=== PATIENT | male | born 1965 | race Two or more races ===

== ENCOUNTER → 2025-03-24 | Outpatient (CLI) | payer MEDICAID, SELFPAY ==
--- NOTE | 2025-03-24 15:30 | XR_ITS ---
Examination: Retroperitoneal ultrasound, complete Technique: Multiple high resolution grayscale images of the retroperitoneum obtained, including kidneys and bladder. Exam date and time:March 24 2025, 1509 hours INDICATIONS: CT stone study July 22, 2023 multiple right renal calculi, diagnosis chronic kidney disease stage III FINDINGS: Right kidney 8.8 cm cortex 2.0 cm Left kidney 10.7 cm cortex 1.6 cm Moderate scar formation No hydronephrosis No bladder mass or bladder calculi Bladder prevoid volume 133 cc Negative for prostatomegaly no prostate nodules IMPRESSION: Small kidneys Bilateral renal cortical thinning Moderate bilateral scar formation
== END | disposition home or self-care (01) ==
LOC: CDIM 14:43
PROVIDERS: PCP Internal Medicine; Referring Provider Internal Medicine; Visit Provider Internal Medicine
DX: N28.89 Other specified disorders of kidney and ureter (principal); N18.32 Chronic kidney disease, stage 3b
CPT/HCPCS: 76770